=== PATIENT | female | born 1975 | race Caucasian/White ===

== ENCOUNTER 2021-08-09 14:15 | Emergency (ER) | payer SELFPAY ==
[~2021-08-09] VITALS: Ht 160 cm; Wt 105.0 kg
[2021-08-09] MEDS ORDERED: KETOROLAC 30MG/ML VIAL IV STA (14:33)
[2021-08-09] MEDS ORDERED: METOCLOPRAMIDE HCL 10MG/2ML VIAL IV ONE (14:45)
[2021-08-09] MEDS ORDERED: SODIUM CHLORIDE 0.9% 1,000 ML IV ONE (14:45)
[2021-08-09 15:49] LABS: BASOPHILS % 0.8 % (0.0-2.0); EOSINOPHILS % 4.8 % (0.0-5.0); HEMATOCRIT. 34.2 % (36.0-48.0); HEMOGLOBIN. 11.6 g/dL (12.0-16.0); LYMPHOCYTES % 27.2 % (20.0-50.0); MEAN CORPUSCULAR HEMOGLOBIN 28.5 pg (28.0-32.0); MEAN CORPUSCULAR VOLUME 84.4 fL (81.0-99.0); MEAN PLATELET VOLUME 8.1 fl (7.4-10.4); MONOCYTES % 5.5 % (2.0-8.0); NEUTROPHILS % 61.7 % (40.0-76.0); PLATELET 458 x1000/uL (130-400); RED BLOOD CELL COUNT 4.06 mill/uL (4.2-5.4); RED CELL DISTRIBUTION WIDTH 16.5 % (11.6-14.6)
[2021-08-09 15:53] LABS: CHLORIDE 105 mEq/L (98-107)
[2021-08-09 16:00] LABS: HCG SCREEN NEGATIVE
[2021-08-09 16:55] LABS: PROTHROMBIN TIME 10.8 sec (9.6-11.0)
[2021-08-09 18:21] LABS: CHLORIDE 107 mEq/L (98-107)
[2021-08-09] MEDS ORDERED: MECLIZINE 25MG TABLET PO ONE (21:00)
[2021-08-09] MEDS ORDERED: ONDANSETRON HCL 4MG/2ML INJ IV ONE (21:00)
[2021-08-09] MEDS ORDERED: MECL-159 MT (22:52)
[2021-08-09] MEDS ORDERED: ONDA4TAB5 MT (22:52)
[2021-08-09 23:04] VITALS: BP 136/69
[2021-08-09] MEDS ORDERED: IOHEXOL-350 100 ML BOTTLE ONE (23:29)
== END 2021-08-09 23:14 | disposition home or self-care (01) ==
LOC: ER 14:20
DX: R51.9 Headache, unspecified (principal); R42 Dizziness and giddiness; J45.909 Unspecified asthma, uncomplicated
CPT/HCPCS: 36415; 70496; 70544; 70553; 80048; 80053; 81025; 84703; 85025; 85610; 93005; 96361; 96374; 96375; 99285; J1885; J2405; J2765; J7030; J8597; Q9967; Z7610